=== PATIENT | female | born 1960 | race Caucasian/White ===

== ENCOUNTER 2018-08-15 14:59 | Inpatient (IN) ==
[2018-08-15 16:17] LABS: BASO# 0.09 X1000 (0.0-0.2); BASO% 1.6 % (0.0-0.8); EOS# 0.04 X1000 (0.0-0.7); EOS% 0.7 % (0.0-10.0); HEMATOCRIT 13.5 % (37.0-47.0); IMM GRAN# 0.01 X1000 (0.0-0.04); IMM GRAN% 0.2 % (0.0-0.5); LYMPH# 0.66 X1000 (1.2-3.4); LYMPH% 11.8 % (20.5-51.1); MCH 17.6 PG (27-31); MCHC 23.7 g/dL (33-37); MCV 74.2 FL (81-99); MONO# 0.53 X1000 (0.11-0.59); MONO% 9.5 % (1.7-9.3); MPV 10.7 FL (7.4-10.4); NEUT# 4.24 X1000 (1.4-6.5); NEUT% 76.2 % (42.2-75.2); PLT 570 X1000 (130-400); RBC 1.82 XMIL (4.2-5.4); RDW 18.7 % (11.5-14.5); WBC 5.57 X1000 (4.8-10.8)
[2018-08-15 16:19] LABS: HEMOGLOBIN 3.2 g/dL (12.0-16.0)
[2018-08-15] MEDS ORDERED: PROTONIX IV ONE (16:32)
[2018-08-15] MEDS ORDERED: SODIUM CHLORIDE 0.9% INJ ONE (16:32)
[2018-08-15 16:35] LABS: AGAP 17; ALBUMIN 3.8 g/dL (3.5-5.0); ALKALINE PHOSPHATASE 61 U/L (32-104); BUN 9 mg/dL (8-22); CALCIUM 8.7 mg/dL (8.8-10.2); CHLORIDE 101 mmol/L (98-107); COSMO 269; CREATININE 0.5 mg/dL (0.5-0.9); ESTIMATED GFR > 60; GLUCOSE 105 mg/dL (70-104); GOT 17 U/L (10-30); GPT 9 U/L (10-36); POTASSIUM 3.9 mmol/L (3.5-5.1); SODIUM 135 mmol/L (136-145); TCO2 18 mmol/L (25-35); TOTAL PROTEIN 6.8 g/dL (6.3-8.3)
[2018-08-15] MEDS ORDERED: NS 1,000 ML IV ONE ×2 (17:11→17:49)
[2018-08-15 17:22] LABS: OCCULT BLOOD 1 NEGATIVE (NEGATIVE)
--- NOTE | 2018-08-15 17:23 | PROVIDER DOCUMENTATION ---
This chart was entered by Sergio Sage Scribe, acting as scribe for Farnaz Lilyl MD. HPI-General Adult - General Chief Complaint: Numbness Stated Complaint: ANEMIC Time Seen by Provider: 08/15/18 16:03 Source: patient Allergies/Adverse Reactions: Patient Allergies Allergy/AdvReac Type Severity Reaction Status Date / Time tramadol [From Ultram] Allergy NAUSEA/VOMI Verified 08/15/18 15:15 TING - History of Present Illness -Gen Adult Nature of Presenting Problems: 57 yof presents to ed with cc of extremity numbness and tingling x 1 day. Reports rectal bleeding and generalized weakness. Reports hx of anemia. Review of Systems - Adult - REVIEW OF SYSTEMS - ADULT Constitutional: reports: fatique, other (general weakness). denies: chills, fever Eyes: reports: no symptoms reported Ears, Nose, Mouth & Throat: reports: no symptoms reported Cardiovascular: denies: chest pain, irregular heart rate, orthopnea, syncope Respiratory: denies: chronic cough, shortness of breath, wheezing Gastrointestinal: reports: rectal bleeding. denies: abdominal pain, diarrhea, difficulty swallowing, frequent heartburn, nausea, poor appetite, vomiting Genitourinary: denies: flank pain, frequent UTI's, hematuria, urinary retention , urgency Musculoskeletal: reports: no symptoms reported Integumentary: denies: mole changes, nail changes Neurological: reports: numbness, paresthesia. denies: dizziness/vertigo, headache/migraines, loss of balance, seizure, slurred speech, syncope, tremors Psychiatric: reports: no symptoms reported Endocrine: reports: no symptoms reported Hematologic/Lymphatic: reports: no symptoms reported Allergic/Immunologic: reports: no symptoms reported All Other Systems: Reviewed and Negative Past History - Adult - PAST MEDICAL HISTORY-ADULT Review of Records: reports: Nursing Assessment Review, Medications Reviewed Major Childhood Illnesses: reports: denies history Cardiovascular: reports: denies history Respiratory: reports: denies history Gastrointestinal: reports: denies history Obstetrical/Gynecological: reports: denies history Genitourinary: reports: denies history Musculoskeletal: reports: denies history Neurological: reports: denies history Endocrine/Immune: reports: anemia Other Conditions: reports: denies history - IMMUNIZATION STATUS Childhood Immunizations: See Nurse Assessment Flu Vaccine: See Nurse Assessment - FAMILY HISTORY Family History: reviewed, not pertinent - SOCIAL HISTORY Smoking: cigarettes, less than 1 pack/day Provider spent 3-5 mins advising pt. on dangers of tobacco.: Discussed manners to quit use, and f/u contacts for add'l counseling. Substance Use: none/never Physical Exam-General - PHYSICAL EXAM-ADULT Initial Vital Signs Reviewed: Yes - CONSTITUTIONAL General Appearance: alert, mild distress. negative: appears well - EYES Eyes: PERRL/EOMI, pale conjunctivae. negative: pink conjunctivae - HEAD, EARS, NOSE, MOUTH & THROAT HENMT: moist mucous membranes, normal ENT inspection, TMs normal, pharynx normal - NECK Neck: non-tender, full range of motion, supple, normal inspection - RESPIRATORY Respiratory: chest non-tender, lungs clear, normal breath sounds, no pleuratic chest pain, no respiratory distress, no accessory muscle use - CARDIOVASCULAR Cardiovascular: no edema, no gallop, no JVD, no murmur, tachycardia - GASTROINTESTINAL (ABDOMEN) Abdominal Exam: normal bowel sounds, non tender, soft, no organomegaly, no pulsatile mass - GENITOURINARY Rectal Exam: blood streaked stool Hemoccult Exam: heme positive stool - MUSCULOSKELETAL Back Exam: normal inspection, no CVA tenderness, no vertebral tenderness Extremity: normal range of motion, non-tender - SKIN Integumentary: normal turgor, warm/dry, pallor - NEUROLOGIC Neurologic: grossly normal - PSYCHIATRIC Psych/Mental Status: normal mood/affect, normal thought content, normal thought process, oriented x 3 Progress - PLAN OF CARE/RESULTS Progress/Plan/Lab Results: Vital Signs - 8 hr 08/15/18 15:09 08/15/18 16:09 Temperature 97.6 F Pulse Rate 103 H 101 H Respiratory Rate 16 17 Blood Pressure 124/61 129/67 O2 Sat by Pulse Oximetry 98 100 Laboratory Results - last 24 hr 08/15/18 16:00 WBC 5.57 RBC 1.82 L Hgb 3.2 L* Hct 13.5 L MCV 74.2 L MCH 17.6 L MCHC 23.7 L RDW Std Deviation 18.7 H Plt Count 570 H MPV 10.7 H Immature Gran % (Auto) 0.2 Neut % (Auto) 76.2 H Lymph % (Auto) 11.8 L Pender % (Auto) 9.5 H Eos % (Auto) 0.7 Baso % (Auto) 1.6 H Immature Gran # (Auto) 0.01 Neut # (Auto) 4.24 Lymph # (Auto) 0.66 L Pender # (Auto) 0.53 Eos # (Auto) 0.04 Baso # (Auto) 0.09 Orders Category Date Time Status CBC WITH ELECTRONIC DIFF [HEME] Stat Lab 08/15/18 16:00 Completed COMPREHENSIVE METABOLIC PANEL [CHEM] Stat Lab 08/15/18 16:00 Received Result Diagrams: 08/15/18 16:00 08/15/18 16:00 - CONSULTS/PCP/HOSPITALIST Notification #1 *Consult/PCP/Hospitalist*: dr. villanueva Time Discussed: 17:21 Consult Disposition: Admit (to [facility]) Departure - Departure Date of Disposition Decision: 08/15/18 Time of Disposition Decision: 17:22 DIAGNOSIS: Anemia, GI bleed Disposition: ADMITTED INPATIENT 09 Certified Medical Emergency: Emergent Condition: Stable Referrals and Follow-Ups: None,PCP [Primary Care Provider] - - Critical Care Note This patient required my direct & personal management of CC.: Yes Total Time (mins): 30 Critical Care Statement: This patient required my direct personal management to treat or rule out processes, the absence of which, could potentiallly result in sudden, clinically significant life or limb threatening deterioration. Attestation - Physician/ RAMON Attestation Patient care was provided by Advanced Practice Provider:: No The physician spent face to face time with patient:: Yes Advanced Practice Provider documentation review:: Supervising physician onsite and consulted in the evaluation and care of this patient. The physician did have a face to face encounter with the patient. This chart was documented by the indicated scribe, (Sergio Sage Scribe) and accurately reflects the services I performed and decisions made by me, Farnaz Lilly MD, as attested by the provider's signature.
[2018-08-15] MEDS ORDERED: TYLENOL PO ONE (18:54)
[2018-08-15] MEDS ORDERED: MORPHINE IV ONE ×2 (20:17→23:21)
[2018-08-15] MEDS ORDERED: ZOFRAN IV ONE (20:18)
[2018-08-16] MEDS: MORPHINE IV PRN ×6 (02:55→20:56)
[2018-08-16] MEDS: ZOFRAN IV PRN ×4 (02:56→20:56)
[2018-08-16] MEDS: SODIUM CHLORIDE 0.9% INJ SCH (02:56)
[2018-08-16] MEDS: PROTONIX IV SCH ×2 (02:56→14:23)
--- NOTE | 2018-08-16 03:41 | HISTORY AND PHYSICAL ---
ADDENDUM: The patient was seen in the ER and was noted to have a hemoglobin at 3.5. The patient notes that she has had similar episodes multiple times [place] and in [place]. She states that has never been able to be diagnosed with the cause of her bleeding. We will admit her to the hospital, type and cross, transfuse and we will follow. This does not appear to be an acute GI bleed but instead a chronic bleed. cc: Rick Lang MD MTDD
[2018-08-16 07:37] LABS: BASO# 0.05 X1000 (0.0-0.2); EOS# 0.06 X1000 (0.0-0.7); EOS% 1.2 % (0.0-10.0); HEMATOCRIT 31.1 % (37.0-47.0); HEMOGLOBIN 9.7 g/dL (12.0-16.0); IMM GRAN# 0.02 X1000 (0.0-0.04); IMM GRAN% 0.4 % (0.0-0.5); LYMPH# 0.43 X1000 (1.2-3.4); LYMPH% 8.6 % (20.5-51.1); MCH 25.4 PG (27-31); MCHC 31.2 g/dL (33-37); MCV 81.4 FL (81-99); MONO# 0.49 X1000 (0.11-0.59); MONO% 9.8 % (1.7-9.3); MPV 10.1 FL (7.4-10.4); NEUT# 3.97 X1000 (1.4-6.5); PLT 333 X1000 (130-400); RBC 3.82 XMIL (4.2-5.4); RDW 17.4 % (11.5-14.5); WBC 5.02 X1000 (4.8-10.8)
[2018-08-16 08:05] LABS: AGAP 10; BUN 9 mg/dL (8-22); CALCIUM 8.1 mg/dL (8.8-10.2); CHLORIDE 104 mmol/L (98-107); COSMO 268; CREATININE 0.6 mg/dL (0.5-0.9); ESTIMATED GFR > 60; GLUCOSE 88 mg/dL (70-104); MAGNESIUM 2.2 mg/dL (1.5-2.7); POTASSIUM 3.4 mmol/L (3.5-5.1); SODIUM 135 mmol/L (136-145); TCO2 21 mmol/L (25-35)
[2018-08-16] MEDS: NS 1,000 ML IV SCH ×2 (09:27→20:56)
[2018-08-16] MEDS: POTASSIUM CHLORIDE 20 MEQ/SWI 20 MEQ/100 ML IVPB IV SCH ×2 (09:27→11:13)
[2018-08-16 12:03] LABS: RETIC% 1.43 % (0.8-2.1); RETIC-HE 18.4 PG (28.2-36.6)
[2018-08-16 12:14] LABS: IRON SATURATION 62 %; TIBC 370 ug/dL; TOTAL IRON 229 ug/dL (49-151); UNBOUND IRON 141 ug/dL (112-346)
[2018-08-16 12:33] LABS: FERRITIN 12 ng/mL (13-150)
--- NOTE | 2018-08-16 14:13 | Diag Imaging Result Doc PS360 ---
EXAM: ABDOMEN FLAT/UPRIGHT 08/16/2018 HISTORY: abdominal pain TECHNIQUE: Flat and upright abdomen portable COMMENT: There is gas throughout the colon including the rectum. There is some small bowel loops in the left upper quadrant which are slightly distended with gas. The stomach is not distended and there is no evidence organomegaly or mass. IMPRESSION: The possibility of focal ileus in the left upper quadrant cannot be excluded. Otherwise nonspecific abdomen without evidence of obstruction. Electronically signed by Kj Longoria 08/16/2018 2:11 PM
[2018-08-16] MEDS: VENOFER 200 MG in NS 150 ML IV SCH (14:23)
--- NOTE | 2018-08-16 19:24 | PROGRESS NOTE ---
DATE: 08/16/2018 SUBJECTIVE: The patient complains of mild abdominal pain. She states that she has not had a bowel movement yet. OBJECTIVE: Vital Signs: Temperature 98.4 degrees, blood pressure 133/67, heart rate 84, respirations 20, O2 saturation is 100% on room air. General: This is a elderly female sitting up in bed in no acute distress. Heart: S1, S2 normal. Regular rate and rhythm. Lungs: Clear to auscultation bilaterally. Abdomen: Positive bowel sounds. Soft, nontender. Extremities: No edema, no cyanosis. Neuro: The patient is alert and oriented x3. LABS: White blood cell count 5, hemoglobin 9.7, hematocrit 31, platelets 333, 000, sodium 135, potassium 3.4, chloride 104, CO2 21, BUN 9, creatinine 0.6, glucose 88. ASSESSMENT AND PLAN: 1. Gastrointestinal bleed. Continue on IV Protonix and NPO status. Will await further recommendations from GI. 2. Severe symptomatic iron deficiency anemia. This is likely secondary to the patient's gastrointestinal bleed. We will start the patient on IV iron. The patient received 4 units of packed red blood cells overnight. Will continue to monitor the hemoglobin and hematocrit closely. 3. Hypokalemia. Will replace the patient's potassium. 4. Subclinical hypothyroidism. Aware. Will monitor this closely. 5. Tobacco dependence. The patient has been counseled about smoking cessation. 6. Deep vein thrombosis prophylaxis. Continue with SCDs. cc: Migdalia Whitney MD MTDD
[2018-08-17] MEDS: PROTONIX IV SCH ×2 (01:45→14:27)
[2018-08-17] MEDS: SODIUM CHLORIDE 0.9% INJ SCH (01:45)
[2018-08-17] MEDS: MORPHINE IV PRN ×6 (02:18→20:59)
[2018-08-17] MEDS: ZOFRAN IV PRN ×4 (02:21→20:59)
--- NOTE | 2018-08-17 05:08 | CONSULTATION ---
DATE OF CONSULTATION: 08/16/2018 REFERRING PHYSICIAN: Migdalia Whitney MD INDICATION FOR CONSULTATION: GI bleeding. HISTORY OF PRESENT ILLNESS: The patient is a 57-year-old white female who states that approximately 4 years ago, she presented with a bloody bowel movement and severe anemia. She was admitted to [facility] where she underwent an EGD and colonoscopy that was negative. She was followed by Dr. Kumar in [place], [place]. According to the patient, she had at least 3 EGDs and 3 colonoscopies over a period of 2 years, but no source of bleeding was found. She reports that the stools would be sometimes dark brown to black alternating with maroon stools. She required multiple units of blood as well as several iron transfusions. The patient states that her need for transfusions increase from every 2 to 3 months to every 3 weeks due to a hemoglobin that would drop less than 5. She was referred to [facility] in March 2017, where she underwent a capsule endoscopy for further evaluation, and it was also reportedly normal. She was referred back to [facility] when she had recurrent GI bleeding in April 2017, and also had a normal capsule endoscopy at that time. She was subsequently sent back to [facility] and underwent a double balloon enteroscopy in May 2017. According to the patient, there were a few AVMs that were visualized and cauterized. She states that less than a month later, she was admitted to [facility] with a hemoglobin less than 6. At that time, she underwent a capsule endoscopy. She states that the capsule endoscopy was negative. She was discharged to home but was readmitted a month later with severe anemia. At that time, she underwent an EGD, colonoscopy and capsule endoscopy but no source of bleeding was found. She required multiple units of blood, but states that she was told to not come back because they could not figure out where her bleeding was coming from. She states that because she of her experience [facility], she did not seek medical attention when she have recurrent GI bleeding. She states that in April of last year, she began to see intermittent dark stools as well as intermittent bright red blood. For the last 1 week, she has had daily bowel movements that were maroon in color and associated with profound weakness. She presented to [facility] on 08/15/2018, with weakness and fatigue. She was found to have a hemoglobin of 3.5 with hematocrit of 13.5. She was admitted and transfused 4 units of packed red blood cells. Her hemoglobin is now 9.7, with hematocrit of 31.1. We are asked to participate in her care. PAST MEDICAL HISTORY: 1. Recurrent anemia. 2. Obscure gastrointestinal bleeding with multiple EGDs, colonoscopies, double balloon enteroscopies, and capsule endoscopies performed. 3. Cervical cancer. 4. Traumatic back injury. 5. MRSA skin infection. 6. 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 PAST SURGICAL HISTORY: 1. Total abdominal hysterectomy. 2. . 3. Bilateral tubal ligation. 4. Back surgery x2. MEDICATION ALLERGIES: Tramadol which results in nausea with vomiting. HOME MEDICATIONS: None. SOCIAL HISTORY: The patient smoked 1 pack per day for 40 years. She reports social alcohol use. She denies recreational drug use. FAMILY HISTORY: Noncontributory. REVIEW OF SYSTEMS: Remarkable for periumbilical to mid epigastric abdominal pain. She reports mild nausea but denies other symptoms. PHYSICAL EXAM: Vital Signs: Her blood pressure is 123/71, pulse of 82, respirations 18, temperature of 97.5 degrees. She reports that her pain is 8 on a scale of 1 to 10. HEENT: Negative for jaundice. Her oropharyngeal mucosal membranes are dry. Pulmonary: Lungs are clear to auscultation with normal respiratory effort. Cardiovascular: Reveals a regular rate and rhythm with no murmurs, gallops, or rubs. Abdomen: Soft with minimal epigastric to periumbilical tenderness, but no rebound or guarding. Extremities: Bilaterally are negative for cyanosis, clubbing, or edema. OBJECTIVE DATA: Reveals a hemoglobin of 9.7 with hematocrit of 31.1, and a white count of 5.02. She has 333,000 platelets (this is post transfusion). On serum chemistries sodium is 135, potassium 3.4, chloride 104, CO2 21, BUN 9, creatinine 0.6, with a glucose of 88, and calcium of 8.2. Magnesium is 2.2. TSH 6.62 with a ferritin of 12. Her vitamin B12 is 412. Her folate is 11.7. IMPRESSION: 1. Obscure gastrointestinal bleeding. 2. Profound anemia. 3. Epigastric/periumbilical abdominal pain. 4. Weakness and fatigue. RECOMMENDATION: 1. I recommend that we obtain outside records. The patient has had an extensive evaluation and, therefore, we need her most recent evaluation to determine the best approach to identify the source of bleeding. 2. I agree with the transfusion that has been performed. 3. I agree with Protonix 40 mg IV q.12 hours for GI prophylaxis. 4. I will order a CT scan of the abdomen and pelvis to survey for the possibility of a malignancy given her recurrent symptoms. 5. She will likely require an EGD and colonoscopy on Wednesday. 6. Continue the iron infusions as you are currently doing pending the availability of the information from the outside facilities, notably [facility], [facility], and [facility]. 7. Additional recommendations to follow based on her clinical course. cc: MD Migdalia Quintana MD
[2018-08-17 07:47] LABS: BASO# 0.05 X1000 (0.0-0.2); BASO% 0.8 % (0.0-0.8); EOS# 0.13 X1000 (0.0-0.7); EOS% 2.1 % (0.0-10.0); HEMATOCRIT 29.6 % (37.0-47.0); IMM GRAN# 0.02 X1000 (0.0-0.04); IMM GRAN% 0.3 % (0.0-0.5); LYMPH% 6.6 % (20.5-51.1); MCH 25.1 PG (27-31); MCHC 30.4 g/dL (33-37); MCV 82.5 FL (81-99); MONO# 0.72 X1000 (0.11-0.59); MONO% 11.9 % (1.7-9.3); MPV 10.3 FL (7.4-10.4); NEUT# 4.75 X1000 (1.4-6.5); NEUT% 78.3 % (42.2-75.2); PLT 311 X1000 (130-400); RBC 3.59 XMIL (4.2-5.4); RDW 18.6 % (11.5-14.5); WBC 6.07 X1000 (4.8-10.8)
[2018-08-17 08:42] LABS: AGAP 11; BUN 3 mg/dL (8-22); CALCIUM 8.1 mg/dL (8.8-10.2); CHLORIDE 106 mmol/L (98-107); COSMO 274; CREATININE 0.5 mg/dL (0.5-0.9); ESTIMATED GFR > 60; GLUCOSE 89 mg/dL (70-104); POTASSIUM 3.6 mmol/L (3.5-5.1); SODIUM 139 mmol/L (136-145); TCO2 22 mmol/L (25-35)
[2018-08-17] MEDS: NS 1,000 ML IV SCH ×2 (09:42→21:13)
--- NOTE | 2018-08-17 11:01 | Diag Imaging Result Doc PS360 ---
EXAM: CT ABD/PELVIS W/PO AND IV CON 08/17/2018 HISTORY: abd pain, GI bleed TECHNIQUE: This exam was performed using automated exposure control, adjustment of mA or kV according to patient size, and/or use of iterative reconstruction technique. COMMENT: There are no previous studies available for comparison. There is bibasilar atelectasis particularly in the right lower lobe. There may be some interstitial pulmonary edema as well. There are bilateral pleural effusions. There is atherosclerotic calcification in the aorta and its branches. There is no evidence of aneurysm and the mesenteric and renal arteries are patent. There is no evidence of nephrolithiasis or hydronephrosis. No evidence of cholelithiasis is present. There are no renal masses. Some small cortical cysts are present on the left. The spleen is not enlarged. The left adrenal gland is enlarged measuring over 18 mm. There is pericholecystic fluid. There is a small amount of fluid in Morison's pouch and adjacent to the duodenum. The stomach is normal in appearance. There is no evidence of free air. No definite mucosal fold thickening is present in the proximal small bowel. There is a small amount of fluid in the right paracolic gutter. The portal vein is patent. There are no definite varices. The liver is unremarkable in appearance. There is no evidence of significant adenopathy. Pelvis: There is some diverticulosis in the ascending and sigmoid colon. The appendix is normal in appearance. There is free fluid in the cul-de-sac. There has been previous hysterectomy. The urinary bladder is not distended. There is no evidence of diverticulitis. There are degenerative changes in the lumbar spine and there has been fusion of the facets at the L4-5 and L5-S1 level bilaterally. There is no evidence of acute bony abnormality. IMPRESSION: Bilateral pleural effusions and basilar atelectasis. Ascites. Diverticulosis coli. Enlargement of the left adrenal gland. Electronically signed by Kj Longoria 08/17/2018 10:59 AM
[2018-08-17] MEDS: VENOFER 200 MG in NS 150 ML IV SCH (12:43)
--- NOTE | 2018-08-17 18:29 | Diag Imaging Result Doc PS360 ---
EXAM: CHEST-PORTABLE 08/17/2018 HISTORY: dyspnea TECHNIQUE: AP portable at 1817 COMMENT: There is blunting of the costophrenic angles. The heart size is at the upper limits of normal. There are no previous studies. There may be mild atelectasis in the lung bases. IMPRESSION: Bilateral pleural effusions and minimal basilar atelectasis. Electronically signed by Kj Longoria 08/17/2018 6:27 PM
[2018-08-17] MEDS ORDERED: LASIX IV ONE (19:19)
--- NOTE | 2018-08-17 23:57 | PROGRESS NOTE ---
DATE: 08/17/2018 SUBJECTIVE: The patient is sitting up, resting comfortably in bed. She complains of mild abdominal pain. She did have a bowel movement that was liquid and maroon in color. OBJECTIVE: Vital Signs: Temperature 97.9 degrees, blood pressure 111/60, heart rate 74, respirations 18, O2 saturation is 96% on room air. General: This is an elderly female sitting up in bed, in no acute distress. Heart: S1, S2 normal. Regular rate and rhythm. Lungs: Equal air entry bilaterally. Diminished breath sounds at the bases. Abdomen: Positive bowel sounds. Soft, nontender, nondistended. Extremities: No edema. No cyanosis. Neurologic: The patient is alert and oriented x3. LABORATORIES: White blood cell count 6, hemoglobin 9, hematocrit 29, platelets 311,000. Sodium 139, potassium 3.6, chloride 106, CO2 of 22, BUN 3, creatinine 0.5, glucose 89, calcium 8.1. IMAGING STUDIES: Chest x-ray shows bilateral pleural effusions and basilar atelectasis. ASSESSMENT AND PLAN: 1. Gastrointestinal bleed. We will continue with IV Protonix and IV iron. The patient is scheduled for endoscopy on Wednesday. 2. Iron deficiency anemia. Continue with IV iron infusions. 3. Bilateral pleural effusions. The patient received 4 units of packed red blood cells. We will give diuretic therapy today and monitor the patient's response. 4. Tobacco dependence. The patient has been counseled about smoking cessation. 5. Subclinical hypothyroidism. Aware. 6. Deep vein thrombosis prophylaxis. Continue with SCDs. cc: Migdalia Whitney MD
[2018-08-18] MEDS: MORPHINE IV PRN ×6 (00:34→23:45)
--- NOTE | 2018-08-18 01:07 | PROGRESS NOTE ---
DATE: 08/17/2018 SUBJECTIVE: The patient continues to have blood in her stool. She reports mild, diffuse abdominal discomfort. Her outside records arrived today from [facility] and from [facility]. The patient apparently has gastric, small bowel, and colonic AVMs that have bled in the past. She has had multiple EGDs and colonoscopies but no active bleeding during the procedure. All of her records that have been scanned into the computer were personally reviewed. PHYSICAL EXAMINATION: On exam, the patient's blood pressure is 127/70, pulse 85, respirations 20, temperature of 98.4 degrees. She reports an 8/10 abdominal pain on the pain scale. The remainder of her exam was deferred. OBJECTIVE DATA: Reveals a hemoglobin of 9.0 with a hematocrit of 29.6 and a white count of 6.07. She has 311,000 platelets. Sodium is 139, potassium 3.6, chloride 106, CO2 of 22, BUN 3, creatinine 0.5, with a glucose of 89 and a calcium of 8.1. RECOMMENDATION: 1. Given that the patient has known arteriovenous malformations, I have recommended EGD and colonoscopy on Wednesday morning. This will give us time to begin her bowel prep overnight. 2. Continue to monitor hemoglobin and hematocrit. It is noted that the hemoglobin is slowly trending downward. 3. We may need to consider the use of Premarin therapy as this has been shown to reduce bleeding from AVMs in small studies. This decision will be based on her endoscopic findings. 4. Continue her current therapy at this time. 5. Continue iron infusions. 6. Notably, her CT scan is remarkable for bilateral pleural effusions, bilateral atelectasis, ascites, diverticulosis, and enlarged left adrenal gland. Her liver is normal. Therefore, based on this, I will plan to pursue endoscopy for evaluation of the GI bleeding, a high-fiber diet post procedure given the diverticulosis, and I will discuss the amount of fluid in the abdomen with the radiologist to determine if it is amenable to paracentesis. 7. Additional recommendations to follow based on her endoscopic evaluation. cc: MD Migdalia Quintana MD
[2018-08-18] MEDS: PROTONIX IV SCH ×2 (01:53→14:22)
[2018-08-18] MEDS: ZOFRAN IV PRN ×3 (05:18→20:19)
[2018-08-18 07:39] LABS: BASO# 0.06 X1000 (0.0-0.2); BASO% 1.1 % (0.0-0.8); EOS# 0.17 X1000 (0.0-0.7); HEMATOCRIT 32.3 % (37.0-47.0); HEMOGLOBIN 9.6 g/dL (12.0-16.0); LYMPH% 7.1 % (20.5-51.1); MCH 25.1 PG (27-31); MCHC 29.7 g/dL (33-37); MCV 84.6 FL (81-99); MONO# 0.79 X1000 (0.11-0.59); MPV 10.1 FL (7.4-10.4); NEUT# 4.22 X1000 (1.4-6.5); NEUT% 74.8 % (42.2-75.2); PLT 323 X1000 (130-400); RBC 3.82 XMIL (4.2-5.4); RDW 20.1 % (11.5-14.5); WBC 5.64 X1000 (4.8-10.8)
[2018-08-18 07:49] LABS: AGAP 12; ALB/GLOB RATIO 1.4; ALBUMIN 3.4 g/dL (3.5-5.0); ALKALINE PHOSPHATASE 59 U/L (32-104); BUN 3 mg/dL (8-22); CALCIUM 8.6 mg/dL (8.8-10.2); CHLORIDE 99 mmol/L (98-107); COSMO 274; CREATININE 0.6 mg/dL (0.5-0.9); ESTIMATED GFR > 60; GLUCOSE 127 mg/dL (70-104); GOT 14 U/L (10-30); GPT 8 U/L (10-36); MAGNESIUM 1.9 mg/dL (1.5-2.7); PHOSPHORUS 3.6 mg/dL (2.7-4.5); POTASSIUM 3.2 mmol/L (3.5-5.1); SODIUM 138 mmol/L (136-145); TCO2 27 mmol/L (25-35); TOTAL BILIRUBIN 0.52 mg/dL (0.20-1.00); TOTAL PROTEIN 5.8 g/dL (6.3-8.3)
[2018-08-18] MEDS ORDERED: KLOR-CON PO ONE (09:51)
--- NOTE | 2018-08-18 10:50 | Diag Imaging Result Doc PS360 ---
EXAM: CHEST-PORTABLE 08/18/2018 HISTORY: pleural effusion TECHNIQUE: AP portable at 1021 COMMENT: There is blunting of the costophrenic angles particularly the right. This was also present on 08/17/2018. There is some slight to subsegmental atelectasis in the right base. The heart size and primary vascularity are within normal limits. IMPRESSION: Small pleural effusions and right basilar atelectasis. Electronically signed by Kj Longoria 08/18/2018 10:48 AM
--- NOTE | 2018-08-18 10:51 | Diag Imaging Result Doc PS360 ---
EXAM: NECK AP AND/OR LAT SOFT TISSUE 08/18/2018 HISTORY: swelling in neck TECHNIQUE: AP and lateral soft tissue neck COMMENT: There is extensive calcification in both carotid arteries. There is no evidence of prevertebral soft tissue swelling. The epiglottis is not enlarged. The airway appears to be clear. There are no apparent masses. There is degenerative disc disease at C5-6 and C6-7 levels with minimal posterior osteophyte formation. IMPRESSION: No definite evidence of acute disease. Electronically signed by Kj Longoria 08/18/2018 10:49 AM
[2018-08-18] MEDS: VENOFER 200 MG in NS 150 ML IV SCH (12:39)
[2018-08-18] MEDS ORDERED: LASIX IV ONE (12:44)
--- NOTE | 2018-08-18 13:49 | PROGRESS NOTE ---
DATE: 08/18/2018 SUBJECTIVE: The patient is sitting up in bed. She complains of some pain and swelling on the left side of her neck where she had an IV. OBJECTIVE: Vital Signs: Temperature 98.4 degrees, blood pressure 103/53, heart rate 70, respirations 18, O2 saturation 98% on room air. General: This is an elderly female, sitting up in bed, in no acute distress. Heart: S1, S2 normal. Regular rate and rhythm. Lungs: Diminished breath sounds at the bases. Equal air entry bilaterally. No crackles. No rales. Abdomen: Positive bowel sounds. Soft, nontender, nondistended. Extremities: No edema. No cyanosis. Neurologic: The patient is alert and oriented x3. LABS: Hemoglobin 9.6, hematocrit 32, platelets 323,000. Potassium 3.2, sodium 138, BUN 3, creatinine 0.6, glucose 127, magnesium 1.9, phosphorus 3.6. AST 14, ALT 8, alkaline phosphatase 59. ASSESSMENT AND PLAN: 1. Gastrointestinal bleed. The patient is scheduled to undergo endoscopy tomorrow. Will await the results of this diagnostic study. 2. Iron deficiency anemia. Continue with iron supplementation. The hemoglobin and hematocrit have improved. 3. Bilateral pleural effusions. Improved. We will give another dose of Lasix today. 4. Subclinical hypothyroidism. Aware. 5. Tobacco dependence. The patient has been counseled about smoking cessation. 6. Deep vein thrombosis prophylaxis. Continue with SCDs. cc: Migdalia Whitney MD MTDD
[2018-08-18] MEDS ORDERED: GOLYTELY PO ONE (14:00)
--- NOTE | 2018-08-19 00:35 | PROGRESS NOTE ---
DATE: 08/18/2018 SUBJECTIVE: The patient states that she has successfully completed her bowel prep today. She reports that her stools are brown. However, they remain guaiac positive. She denies evidence of active bleeding at this time. She is anxious to undergo re-evaluation given that her hemoglobin was 3.2 on admission. PHYSICAL EXAMINATION: Vital Signs: Her blood pressure is 120/62, pulse 71, respiration 18, temperature of 98.1 degrees. The remainder of her exam was deferred. OBJECTIVE DATA: Hemoglobin of 9.6 with hematocrit of 32.3 and a white count of 5.64. She has 323,000 platelets. Sodium is 138, potassium 3.2, chloride 99, CO2 27, BUN 3, creatinine 0.6 with a glucose 127. Calcium is 8.6, phosphorus 3.6, magnesium 1.9, total bilirubin 0.52, AST 14, ALT 8, alkaline phosphatase 59, total protein 5.8 and albumin 3.4. RECOMMENDATION: 1. The patient awaits EGD and colonoscopy in the morning. 2. I advised the patient that given that she has had extensive evaluation in the past and has an obscure GI bleeding, the exam tomorrow may or may not find the cause of bleeding. However, we will evaluate for lesions that are amenable to treatment. 3. If the endoscopy is negative tomorrow, one can consider empiric Premarin therapy which has been used successfully for obscure bleeding secondary to arteriovenous malformations. There is a small but significant increased risk of blood clot. This will need to be discussed in detail based on our endoscopic findings. 4. Additional recommendations to follow based on her endoscopy tomorrow. cc: MD Migdalia Quintana MD
[2018-08-19] MEDS: PROTONIX IV SCH ×3 (02:16→21:29)
[2018-08-19] MEDS: ZOFRAN IV PRN ×2 (02:16→09:06)
[2018-08-19] MEDS: MORPHINE IV PRN ×5 (04:11→21:30)
[2018-08-19 07:05] LABS: HEMATOCRIT 33.2 % (37.0-47.0); HEMOGLOBIN 9.9 g/dL (12.0-16.0); MCH 25.9 PG (27-31); MCHC 29.8 g/dL (33-37); MCV 86.9 FL (81-99); MPV 10.2 FL (7.4-10.4); RBC 3.82 XMIL (4.2-5.4); RDW 22.3 % (11.5-14.5); WBC 5.69 X1000 (4.8-10.8)
[2018-08-19 07:24] LABS: AGAP 11; BUN 3 mg/dL (8-22); CALCIUM 8.5 mg/dL (8.8-10.2); CHLORIDE 101 mmol/L (98-107); COSMO 272; CREATININE 0.6 mg/dL (0.5-0.9); ESTIMATED GFR > 60; GLUCOSE 95 mg/dL (70-104); POTASSIUM 3.6 mmol/L (3.5-5.1); SODIUM 138 mmol/L (136-145); TCO2 26 mmol/L (25-35)
[2018-08-19] MEDS ORDERED: MUCOMYST 20% INH SCH (10:30)
[2018-08-19] MEDS ORDERED: KEFZOL 1 GM/D5W 1 GM/50 ML IVPB IV SCH (10:30)
--- NOTE | 2018-08-19 11:31 | PROGRESS NOTE ---
DATE: 08/19/2018 SUBJECTIVE: The patient is resting comfortably in bed. No acute events noted overnight. The patient is scheduled for endoscopy today. OBJECTIVE: Vital Signs: Temperature 98 degrees, blood pressure 116/64, heart rate 66, respirations 16. O2 saturation is 95% on room air. General: The patient is sitting up in bed in no acute distress. Head: Normocephalic. Neck: The patient has some mild erythema and tenderness on the left lateral aspect of her neck. Neck: The area appears to be erythematous. Heart: S1, S2 normal. Regular rate and rhythm. Lungs: Clear to auscultation bilaterally. Abdomen: Positive bowel sounds. Soft, nontender, nondistended. Extremities: No edema, no cyanosis. Neurologic: The patient is alert and oriented x3. LABS: White blood cell count 5.6, hemoglobin 9.9, hematocrit 33, platelets 290, 000. Sodium 138, potassium 3.6, chloride 101, CO2 26, BUN 3, creatinine 0.6, glucose 95, calcium 8.5. ASSESSMENT AND PLAN: 1. Gastrointestinal bleed. The patient is scheduled to undergo esophagogastroduodenoscopy with colonoscopy today. Will await the results of this diagnostic study. 2. Iron deficiency anemia. Improved. We will start the patient on Icar C. The patient received 3 days of intravenous iron infusions. 3. Bilateral pleural effusions, slowly improving. 4. Tobacco dependence. The patient has been counseled about smoking cessation. 5. Subclinical hypothyroidism. Aware. 6. Deep vein thrombosis prophylaxis. The patient is on sequential compression devices. cc: Migdalia Whitney MD MTDD
[2018-08-19] MEDS: DUONEB (A & A) INH SCH ×3 (11:44→23:49)
--- NOTE | 2018-08-19 11:45 | Diag Imaging Result Doc PS360 ---
CT CERVICAL SPINE W/O CONTRAST - 08/19/2018 INDICATION: cervical radiculopathy COMPARISON: None FINDINGS: There is mild reversal of the normal cervical lordosis. No fracture or subluxation. Vertebral body heights are preserved. There is advanced disc degeneration mainly at C5-6 and C6-7, with narrowing, sclerosis, and anterior and posterior osteophytes. There is also mild multilevel facet degeneration without significant hypertrophy. There is severe vascular calcification of the carotid bulbs bilaterally compatible with severe vascular disease. At C4-5 there is a mild disc bulge but no significant stenosis. At C5-6 there is a significant posterior disc bulge with [id number] central canal stenosis. There is also moderate bilateral neural foraminal stenosis. At C6-7 there is a diffuse posterior disc bulge with mild central canal stenosis. There is moderate left neural foraminal stenosis. IMPRESSION: Chronic malpositioning of the cervical spine. Cervical spondylosis. This exam was performed using automated exposure control, adjustment of mA or kV according to patient size, and/or use of iterative reconstruction technique. Electronically signed by Gabriel Johnston 08/19/2018 11:43 AM
--- NOTE | 2018-08-19 11:51 | Diag Imaging Result Doc PS360 ---
EXAM: CHEST-PORTABLE HISTORY: dyspnea TECHNIQUE: Portable chest COMPARISON: 08/18/2018 FINDINGS: The lungs are well expanded. The heart is not enlarged. The vessels are not distended. There are no infiltrates. No definite effusions identified on the current exam. IMPRESSION: Interval improvement Electronically signed by Enrique Jackson 08/19/2018 11:48 AM
--- NOTE | 2018-08-19 12:09 | Diag Imaging Result Doc PS360 ---
EXAM: US SOFT TISSUE HEAD/NECK HISTORY: left neck abscess TECHNIQUE: Left neck ultrasound COMPARISON: None. FINDINGS: There are small lymph nodes in the lower neck measuring less than 1 cm. No cyst or cystic mass. No other solid mass. IMPRESSION: No abscess identified. Electronically signed by Enrique Jackson 08/19/2018 12:06 PM
[2018-08-19] MEDS ORDERED: TESSALON PO SCH (13:00)
[2018-08-19] MEDS ORDERED: DIPRIVAN 1% ONE ×2 (15:14→15:34)
[2018-08-19 15:43] LABS: PH BODY FLUID 5; SPECIMEN GASTRIC FLUID
--- NOTE | 2018-08-19 17:13 | Diag Imaging Result Doc PS360 ---
BARIUM ENEMA - 08/19/2018 INDICATION: obstruction at 60 cm on colonoscopy TECHNIQUE: Water-soluble contrast enema. Total fluoroscopy time was two minutes. 25 images were obtained. COMPARISON: 08/16/2018 FINDINGS: The colon is normally distensible. Configuration appears normal. There are several diverticula of the sigmoid colon. The sigmoid colon is also rather redundant. No obstruction or perforation. IMPRESSION: Mild diverticulosis of the sigmoid colon. Redundant sigmoid colon. No acute abnormality. Electronically signed by Gabriel Johnston 08/19/2018 5:10 PM
[2018-08-19] MEDS: CARAFATE LIQUID PO SCH (17:53)
[2018-08-19] MEDS: ATIVAN IV PRN ×2 (17:53→21:30)
--- NOTE | 2018-08-19 20:03 | OPERATIVE NOTE ---
PROCEDURE DATE: 08/19/2018 REFERRING PROVIDER: Migdalia Whitney MD INDICATION FOR PROCEDURE: 1. Anemia. 2. Melena. 3. Hematochezia. PROCEDURE PERFORMED: Esophagogastroduodenoscopy with biopsy. CONSENT: Informed consent was obtained from the patient prior to the procedure. The risks, benefits, and alternatives were discussed. MEDICATION: The patient received monitored anesthesia care. PERFORMING PHYSICIAN: Pippa Bhat MD. ASSISTANTS: 1. [facility] 2. Kamini Hollis R.N. 3. Solange Tinoco CRNA. 4. Madhu Nguyen MD (Anesthesia). COMPLICATIONS: There were no complications. ESTIMATED BLOOD LOSS: Less than 1 mL. SPECIMENS REMOVED: 1. Duodenal biopsy. 2. Gastric biopsy. 3. Gastric aspirate for pH. FINDINGS: After sedation was achieved, the upper endoscope was inserted to the third portion of the duodenum. The hypopharynx appeared normal. The tubular esophagus was normal. There was active bile reflux to the mid esophagus during the procedure. The GE junction appeared normal at 40 cm. In the gastric lumen, there was acute erosive gastritis. In the antrum, there were 5 serpiginous ulcers with whitish bases. The ulcers were inflamed but there was no stigmata of bleeding. On retroflexed view, there was an additional serpiginous ulcer in the cardia that extended to the fundus. There was no stigmata of bleeding. On forward view, the pylorus appeared normal. In the duodenum, there was extensive erosive duodenitis. The duodenal folds were scalloped, but there was no active bleeding. There were at least 2 duodenal diverticulum that were visualized. The ampulla of Vater appeared grossly normal. After the exam was complete, biopsies were taken from the duodenal and gastric mucosa. In addition, gastric fluid was aspirated for gastric pH. The lumen was then decompressed and the scope was removed without incident. IMPRESSION: 1. Bile active bile reflux. 2. Acute erosive gastritis. 3. Five gastric ulcers in the antrum. 4. One gastric ulcer in the cardia/fundus. 5. Acute erosive duodenitis with scalloped duodenal folds. 6. Duodenal diverticulum. RECOMMENDATION: 1. Await biopsy results. 2. Continue Protonix 40 mg q.12 h. 3. Add Carafate 1 g p.o. 4 times a day for 12 weeks and then stop. 4. We will obtain a serum gastrin level to assess for Gopi-Villa syndrome. 5. We await the results of the gastric pH study. 6. We will proceed with a colonoscopy as previously scheduled. cc: MD Migdalia Quintana MD
[2018-08-20] MEDS: TESSALON PO PRN ×3 (00:19→21:53)
[2018-08-20] MEDS: CARAFATE LIQUID PO SCH ×4 (00:20→17:23)
--- NOTE | 2018-08-20 03:10 | OPERATIVE NOTE ---
PROCEDURE DATE: 08/19/2018 REFERRING PHYSICIAN: Migdalia Whitney MD. INDICATION FOR THE PROCEDURE: 1. Anemia. 2. Melena. 3. Hematochezia. PROCEDURE PERFORMED: Colonoscopy limited to 60 cm with biopsy. CONSENT: Informed consent was obtained from the patient prior to the procedure. The risks, benefits, and alternatives were discussed. MEDICATION: The patient received monitored anesthesia care. PERFORMING PHYSICIAN: Pippa Bhat MD. ASSISTANTS: 1. [facility]. 2. Kamini Hollis RN. 3. Solange Tinoco CRNA. 4. Madhu Nguyen MD (anesthesia). COMPLICATIONS: There were no complications. ESTIMATED BLOOD LOSS: Less than 1 mL. SPECIMEN REMOVED: Polyp at 20 cm x2. FINDINGS: After sedation was achieved, the pediatric colonoscope was inserted to 60 cm. At 60 cm, there was severe twisting and angulation consistent with a redundant colon. We were unable to advance the scope beyond 60 cm. Upon withdrawal, there was diverticulosis in the descending and sigmoid colon. At 20 cm, there were 2 polyps that ranged in size from 3-5 mm. They were removed by cold biopsy forceps. In the upper rectum, there was grade 2 internal hemorrhoids. On retroflexed view, there were large external hemorrhoids. After the exam was complete, the lumen was decompressed and the scope was removed without incident. IMPRESSION: 1. Sharp angulation versus redundant colon. 2. Sigmoid and descending colon diverticulosis. 3. Sessile polyps at 20 cm. 4. Grade 2 internal hemorrhoids. 5. Large external hemorrhoids. RECOMMENDATION: 1. Await biopsy results. 2. We will obtain a barium enema now. 3. She will need a repeat colonoscopy to survey for additional colon polyps in the future. I recommend using the standard adult colonoscope. This exam can be performed as an outpatient. 4. I will advance the patient's diet. If she tolerates her diet overnight and in the morning, it is reasonable to pursue outpatient management. 5. Please have the patient call our office and schedule a follow up appointment for 09/07/2018. cc: MD Migdalia Quintana MD
[2018-08-20] MEDS: DUONEB (A & A) INH SCH ×6 (03:15→23:37)
[2018-08-20] MEDS: MORPHINE IV PRN ×5 (03:51→21:53)
[2018-08-20] MEDS: ATIVAN IV PRN ×5 (03:52→21:53)
[2018-08-20 07:41] LABS: BASO# 0.03 X1000 (0.0-0.2); BASO% 0.4 % (0.0-0.8); EOS# 0.07 X1000 (0.0-0.7); EOS% 0.9 % (0.0-10.0); HEMATOCRIT 35.1 % (37.0-47.0); HEMOGLOBIN 10.3 g/dL (12.0-16.0); LYMPH% 3.7 % (20.5-51.1); MCH 25.8 PG (27-31); MCHC 29.3 g/dL (33-37); MONO# 0.75 X1000 (0.11-0.59); MONO% 9.2 % (1.7-9.3); NEUT# 7.01 X1000 (1.4-6.5); NEUT% 85.8 % (42.2-75.2); PLT 303 X1000 (130-400); RBC 3.99 XMIL (4.2-5.4); RDW 22.8 % (11.5-14.5); WBC 8.16 X1000 (4.8-10.8)
[2018-08-20 07:53] LABS: CHOLESTEROL 87 mg/dL (0-200); HDL 35 mg/dL (45-65); LDL 42 mg/dL; TRIGLYCERIDES 50 mg/dL (35-135); VLDL 10 mg/dL
[2018-08-20 07:54] LABS: AGAP 11; BUN 6 mg/dL (8-22); CALCIUM 8.8 mg/dL (8.8-10.2); CHLORIDE 101 mmol/L (98-107); COSMO 277; CREATININE 0.6 mg/dL (0.5-0.9); ESTIMATED GFR > 60; GLUCOSE 133 mg/dL (70-104); POTASSIUM 3.7 mmol/L (3.5-5.1); SODIUM 139 mmol/L (136-145); TCO2 27 mmol/L (25-35)
[2018-08-20 08:40] LABS: BANDS 1 % (0-1); EOS 1 % (1-10); LYMPHS 4 % (21-51); MONO 8 % (1-9); SEGS 86 % (42-75)
[2018-08-20 08:41] LABS: ANISOCYTOSIS OCCASIONAL; HYPOCHROM OCCASIONAL
[2018-08-20] MEDS: PROTONIX IV SCH ×2 (09:15→20:41)
[2018-08-20] MEDS: ZOFRAN IV PRN ×3 (10:09→21:58)
[2018-08-20] MEDS: TUSSIONEX LIQUID PO PRN ×2 (10:37→21:53)
--- NOTE | 2018-08-20 13:16 | PROGRESS NOTE ---
DATE: 08/20/2018 SUBJECTIVE: The patient states that she did not sleep well last night. OBJECTIVE: Vital Signs: Temperature 97 degrees, blood pressure 112/67, heart rate 86, respirations 16, O2 saturation is 98% on room air. General: This is an elderly female lying in the bed in no acute distress. Heart: S1, S2 normal. Regular rate and rhythm. Lungs: Clear to auscultation bilaterally. Diminished breath sounds at the bases. Abdomen: Positive bowel sounds. Soft, nontender, nondistended. Extremities: No edema, no cyanosis. Neuro: The patient is alert and oriented x3. LABS: Hemoglobin 10, hematocrit 35, platelets 303,000, sodium 139, BUN 6, creatinine 0.6, glucose 133, magnesium 2. ASSESSMENT AND PLAN: 1. Gastrointestinal bleed secondary to multiple gastric ulcers. Continue on Carafate and Protonix. 2. Erosive duodenitis. The patient is on Protonix. 3. Iron deficiency anemia. Improved. Will continue on iron supplementation. 4. Bilateral pleural effusions. Stable. 5. Subclinical hypothyroidism. Aware. 6. Tobacco dependence. The patient has been counseled about smoking cessation. 7. Severe vascular calcification of the carotid bulb. This was seen on the CT of the cervical spine. Will order a carotid duplex study as well as an echocardiogram. 8. Deep vein thrombosis prophylaxis continue SCDs. cc: Migdalia Whitney MD MTDD
--- NOTE | 2018-08-20 16:16 | Diag Imaging Result Doc PS360 ---
CT THORAX W/O CONTRAST - 08/20/2018 INDICATION: dyspnea/cough/smoker COMPARISON: Chest x-ray from 08/19/2018 FINDINGS: There is no adenopathy. Anemia is present. Heart size is normal with no pericardial effusion. There is a trace right pleural effusion. There is some minimal linear atelectasis in both lung bases. No infiltrates or masses. Upper abdominal images are normal. There are moderate degenerative changes of the spine. No acute or suspicious bony lesion. IMPRESSION: Trace right pleural effusion. Nonspecific linear atelectasis in both lung bases. No suspicious findings. This exam was performed using automated exposure control, adjustment of mA or kV according to patient size, and/or use of iterative reconstruction technique Electronically signed by Gabriel Johnston 08/20/2018 4:14 PM
--- NOTE | 2018-08-20 17:54 | ECHO REPORT ---
ORDER DATE: 08/20/2018 ECHOCARDIOGRAPHIC MEASUREMENTS: 1. Interventricular septum 1.3, left ventricular posterior wall 1.3, diastolic diameter 4.5, left atrium 4.8, aorta 3.2. 2. Aortic valve leaflets are sclerosed, trileaflet opening normally. Pulmonic valve was normal. There is trace pulmonary regurgitation. 3. Tricuspid valve was normal. 4. Mitral valve was normal. There is mild mitral regurgitation. 5. Mild tricuspid regurgitation. Peak velocity across the tricuspid valve was 2.4 m/sec. 6. Peak velocity across the aortic valve less than 2 m/sec. There is no aortic stenosis or regurgitation. 7. Normal left ventricular cavity size. Mild left ventricular hypertrophy. Estimated ejection fraction of 60%. 8. There is no pericardial effusion or obvious intracardiac mass or thrombus seen. 9. There is left atrial enlargement. cc: MD Migdalia Zhou MD
[2018-08-21] MEDS: CARAFATE LIQUID PO SCH ×5 (00:29→23:15)
[2018-08-21] MEDS: DUONEB (A & A) INH SCH ×6 (03:29→22:50)
[2018-08-21] MEDS: ATIVAN IV PRN ×4 (05:23→23:15)
[2018-08-21] MEDS: MORPHINE IV PRN ×4 (05:23→23:14)
[2018-08-21] MEDS: ZOFRAN IV PRN ×3 (05:28→16:31)
[2018-08-21 08:01] LABS: AGAP 17; BUN 7 mg/dL (8-22); CALCIUM 8.3 mg/dL (8.8-10.2); CHLORIDE 99 mmol/L (98-107); COSMO 270; CREATININE 0.5 mg/dL (0.5-0.9); ESTIMATED GFR > 60; GLUCOSE 95 mg/dL (70-104); POTASSIUM 3.7 mmol/L (3.5-5.1); SODIUM 136 mmol/L (136-145); TCO2 20 mmol/L (25-35)
[2018-08-21] MEDS: SODIUM CHLORIDE 0.9% INJ SCH (09:40)
[2018-08-21] MEDS: PROTONIX IV SCH ×2 (09:40→20:47)
[2018-08-21] MEDS: TUSSIONEX LIQUID PO PRN ×2 (09:48→20:47)
[2018-08-21] MEDS: ZOSYN 2.25 GM in NS 50 ML IV SCH ×3 (11:46→23:15)
--- NOTE | 2018-08-21 18:43 | PROGRESS NOTE ---
DATE: 08/21/2018 SUBJECTIVE: The patient is resting comfortably in bed. She complains of numbness in her left arm when she turns her head. OBJECTIVE: Vital Signs: Temperature 98.6, blood pressure 117/64, heart rate 94, respirations 18, O2 sats 97% on room air. General: This is an elderly female lying in bed in no acute distress. Heart: S1, S2 normal. Regular rate and rhythm. Lungs: Clear to auscultation bilaterally. Abdomen: Positive bowel sounds. Soft, nontender, nondistended. Extremities: No edema, no cyanosis. Neurologic: The patient is alert and oriented x 3. LABS: Reviewed. ASSESSMENT AND PLAN: 1. GI bleed secondary to multiple gastric ulcers. Continue on Carafate and Protonix. 2. Erosive duodenitis. The patient is on Protonix. 3. Iron deficiency anemia. Continue on iron supplementation. 4. Bilateral pleural effusions. Resolved. 5. Possible cervical radiculopathy. Will order an MRI of the C-spine to be done tomorrow. 6. Subclinical hypothyroidism. Aware. 7. Tobacco dependence. The patient has been counseled about smoking cessation. 8. Severe vascular calcification of the carotid bulb. Will order a carotid Doppler study to further assess this. 9. DVT prophylaxis. Continue with SCDs. cc: Migdalia Whitney MD
[2018-08-22] MEDS: DUONEB (A & A) INH SCH ×6 (03:20→23:17)
[2018-08-22] MEDS: MORPHINE IV PRN ×2 (05:16→09:59)
[2018-08-22] MEDS: ZOSYN 2.25 GM in NS 50 ML IV SCH ×4 (05:16→22:22)
[2018-08-22] MEDS: CARAFATE LIQUID PO SCH ×3 (05:16→18:12)
[2018-08-22] MEDS: ZOFRAN IV PRN ×5 (05:44→22:34)
[2018-08-22 07:05] LABS: HEMOGLOBIN 9.2 g/dL (12.0-16.0); MCH 25.6 PG (27-31); MCHC 28.8 g/dL (33-37); MCV 88.9 FL (81-99); MPV 10.2 FL (7.4-10.4); RBC 3.6 XMIL (4.2-5.4); RDW 23.9 % (11.5-14.5); WBC 8.93 X1000 (4.8-10.8)
[2018-08-22 07:23] LABS: AGAP 13; BUN 8 mg/dL (8-22); CALCIUM 8.4 mg/dL (8.8-10.2); CHLORIDE 99 mmol/L (98-107); COSMO 270; CREATININE 0.5 mg/dL (0.5-0.9); ESTIMATED GFR > 60; GLUCOSE 100 mg/dL (70-104); POTASSIUM 3.3 mmol/L (3.5-5.1); SODIUM 136 mmol/L (136-145); TCO2 24 mmol/L (25-35)
[2018-08-22] MEDS ORDERED: KLOR-CON PO ONE (08:24)
[2018-08-22] MEDS: PROTONIX IV SCH ×2 (10:00→22:22)
--- NOTE | 2018-08-22 10:00 | Diag Imaging Result Doc PS360 ---
EXAM: MRI CERVICAL SPINE W/O CON INDICATION: cervical radiculopathy TECHNIQUE: COMPARISON: No prior MRI C-spine is available for comparison. FINDINGS: There are mild endplate degenerative Modic signal changes at C6-7. The osseous marrow signal is essentially unremarkable, otherwise. The cervical spinal cord signal is unremarkable. Structures at the base the brain and surrounding soft tissues are grossly unremarkable. Segmental analysis of the cervical spine is detailed below. C1-2: Essentially unremarkable. C2-3: Essentially unremarkable. C3-4: Essentially unremarkable. C4-5: There is a very small broad-based disc osteophyte complex causing minimal effacement of the ventral thecal sac. There is no evidence of cord compression and no evidence of significant foraminal stenosis. C5-6: There is a broad-based disc osteophyte complex that is causing moderate central stenosis. No definite cord compression is appreciated. There is at least moderate left neuroforaminal stenosis and mild right neuroforaminal stenosis. C6-7: There is a broad-based disc osteophyte complex causing [id number] central canal stenosis. There is moderate to severe left neuroforaminal stenosis and mild to moderate right neuroforaminal stenosis. C7-T1: Unremarkable. IMPRESSION: Multilevel degenerative disc disease as detailed above that appears to be most significant at C5-6 and C6-7. Electronically signed by Sage Rowe 08/22/2018 9:58 AM
[2018-08-22] MEDS: ATIVAN IV PRN ×3 (10:48→22:22)
--- NOTE | 2018-08-22 13:23 | CONSULTATION ---
DATE OF CONSULTATION: 08/22/2018 REASON FOR CONSULTATION: Left arm tingling. HISTORY OF PRESENT ILLNESS: This is a 57-year-old right-handed female with chronic anemia that is being worked up. She was admitted with a hemoglobin of 3.2 and hematocrit of 13.5. She has recently undergone EGD and colonoscopy. Several gastric ulcers, erosive gastritis and duodenitis and polyps were seen. Biopsies are pending. She received blood transfusion as well as iron this hospitalization. The patient reports for nearly 3 weeks she has had mostly persistent tingling sensation in her left upper extremity. At rare times, the sensation does derrick, but typically it is present and waxes and wanes in intensity. The location is over the anterior arm and forearm both medially and laterally, and then she feels numbness and tingling in the tips of all digits of the left hand, palmar and dorsal. It does not otherwise involve the hand. The symptoms are improved when she turns her head to the right. She does not know what makes the symptoms flare. She noticed once that she had some difficulty holding a cup with her left hand. She may have dropped it, but she does not recall exactly. She reports neck pain since June. She denies injury. She denies any other weakness. The symptoms are limited to the left upper extremity as described. No other neurologic symptoms. Cervical MRI here, noncontrasted, showed multilevel degenerative disk disease most significant at C5-C6 and C6-C7. At C5-C6 there is moderate central stenosis, no definite cord compression, and at least moderate neuroforaminal stenosis and mild right neuroforaminal stenosis. At C6-C7, there is mild to moderate central canal stenosis, moderate to severe left neuroforaminal and mild to moderate right neuroforaminal stenosis. She has never had any history of major neurologic events. PAST MEDICAL HISTORY: 1. She reports chronic anemia without prior explanation. 2. Two back surgeries to the lumbar spine. 3. Otherwise, she reports being relatively healthy. FAMILY HISTORY: Father with Parkinson disease. No strokes or seizures. SOCIAL HISTORY: She is a current smoker. Social alcohol. No illicits. She lives in [place] but has been staying with her son who lives nearby. ALLERGIES: Listed to tramadol. HOME MEDICATIONS: She reports none and no supplements. CURRENT MEDICATIONS: Reviewed in the chart include: 1. P.R.N. Collins. 2. P.R.N. lorazepam. 3. P.R.N. morphine. REVIEW OF SYSTEMS: Balance of 12 was conducted and is otherwise negative except as detailed in the HPI. She has had abdominal pain and blood in her stool. PHYSICAL EXAMINATION: Vital signs: She is afebrile. Blood pressure 120/63, pulse 80s to 90s, respirations 18, 95% on room air. Neurological: Ms. Golden is sitting up in bed with the head of the bed elevated. She is awake, alert, oriented. Speech is slow, no language disturbance. Attention and concentration intact. She follows simple and complex commands. Left, right, and digit distinction preserved. Pupils equal, round and reactive to light, miotic. Gaze conjugate forward. Extraocular movements are full. Visual hope intact to direct confrontational testing. She can hear. Face symmetric with equal activation. Facial sensation reported intact. Tongue is midline. Palate elevates symmetrically. Shoulder shrug is full. No drift. Detailed strength testing of the upper extremities shows preserved strength bilaterally and symmetrically. This includes shoulder abduction, external and internal rotation, deltoid, triceps, biceps, pronation, supination, wrist flexion and extension, intrinsic hand muscles. The lower extremities are with full strength that is symmetric as tested. She is noted several times during the encounter to use both of her extremities purposely and without any obvious difficulty. She stands up, goes to her table, moves a crate of items using her arms. Sensory testing is a bit inconsistent but does not show any definite dermatomal pattern. Reflexes are trace wrists, 1+ at biceps, 2+ triceps, 2+ patellar, and 1+ ankle jerks bilaterally. They are symmetric. No clonus. Plantar response is downgoing. Rapid alternating movement, [id number], are intact and symmetric. Gait: She is seen to easily get out of the bed unassisted and walk a few steps back and forth from her tray table. She has a normal casual gait. DIAGNOSTICS: MRI of the cervical spine as per above. She also had a chest CT that did not show suspicious findings. Cervical spine CT was similar to MRI but mentioned severe vascular calcification of the carotid bulbs bilaterally compatible with severe vascular disease. ASSESSMENT AND PLAN: Fluctuating paresthesias isolated to the left upper extremity as detailed above. The etiology is uncertain at this time. She has evidence of neuroforaminal narrowing most prominent on the left at C5-C6 and C6-C7 per recent MRI, but there is no current weakness on exam and today her sensory findings were inconsistent and not definitely dermatomal. Given the brief time frame for which this has been ongoing, I think we can wait and see if it resolves on its own over the next couple of weeks but see her in clinic subsequently if it has not. This will give her time to heal from her current active medical issues but also will increase the sensitivity for any potential neurodiagnostics that may be performed. Thank you for the consultation. cc: Mel Lopez MD MTDD
[2018-08-22] MEDS: NORCO-5 PO PRN ×2 (14:41→18:19)
--- NOTE | 2018-08-22 16:45 | PROGRESS NOTE ---
DATE: 08/22/2018 SUBJECTIVE: The patient is resting comfortably in bed. No acute events noted overnight. OBJECTIVE: Vital Signs: Temperature 98.6 degrees, blood pressure 123/72, heart rate 92, respirations 19, and O2 saturations 100% on room air. General: This is an elderly female, lying in bed, in no acute distress. Heart: S1 and S2, normal. Regular rate and rhythm. Lungs: Clear to auscultation bilaterally. Abdomen: Positive bowel sounds. Soft, nontender, nondistended. Extremities: No edema, no cyanosis. Neurologic: The patient is alert and oriented x3. LABORATORY DATA: Hemoglobin 9.2, hematocrit 32, platelets 242,000. Sodium 136, potassium 3.3, BUN 8, creatinine 0.5, glucose 100. ASSESSMENT AND PLAN: 1. Gastrointestinal bleed secondary to multiple gastric ulcers. Continue on Carafate and Protonix. The patient's gastrin level was elevated. We will await further recommendations from gastrointestinal. 2. Erosive duodenitis. Continue on Protonix. 3. Iron deficiency anemia. Improved. 4. Bilateral pleural effusions. Resolved. 5. Possible cervical radiculopathy. The patient has been seen by the neurologist. She will likely need an EMG as an outpatient. 6. Severe vascular calcification of the carotid bulb. The patient had a carotid duplex study done today. We will await the report of this study. 7. Tobacco dependence. The patient has been counseled about smoking cessation. 8. Subclinical hypothyroidism. Aware. 9. Disposition. The patient should be stable for discharge home tomorrow. cc: Migdalia Whitney MD
[2018-08-22] MEDS: FERROUS SULFATE PO SCH (18:12)
--- NOTE | 2018-08-22 20:10 | PROGRESS NOTE ---
DATE: 08/22/2018 SUBJECTIVE: The patient states that her abdomen is significantly better than last week. She denies nausea with vomiting. She denies recurrent GI bleeding. She remains on Carafate and Protonix. She notes that her abdomen is mildly tender but denies pain per se. She reports no recurrent bowel movement since her colonoscopy. She denies melena or hematochezia. PHYSICAL EXAM: Vital Signs: Her blood pressure is 123/72, pulse 92, respiration 19, temperature of 98.6 degrees. HEENT: Negative for jaundice. Her oropharyngeal mucosa membranes are moist. Pulmonary: Lungs are clear to auscultation with normal respiratory effort. Cardiovascular: Reveals regular rate and rhythm. Abdomen: Soft with mild diffuse tenderness. There is no rebound or guarding. OBJECTIVE DATA: Reveals a hemoglobin of 9.2 with hematocrit of 32.0 and a white count of 8.93. She has 247,000 platelets. Sodium is 136, potassium 3.3, chloride 99, CO2 24, BUN 8, creatinine 0.5 with a glucose of 100 and a calcium of 8.4. Her serum gastrin is 172, TTG is less than 1.2 and gastric pH was 5. RECOMMENDATION: 1. The patient has considerable constipation. Therefore, I recommend beginning Movantik 12.5 mg once a day in the morning. I will write for the 1st dose tomorrow. 2. The patient had evidence of peptic ulcer disease. There has been no evidence of recurrent GI bleeding. Her hemoglobin has been stable. I would continue Protonix and Carafate. Once she is ready for discharge, I would transition to omeprazole once a day and Carafate 4 times a day for a total of 12 weeks and then stop. 3. Patient had an elevated gastrin level but it does not fall within the range consistent was Gopi-Villa syndrome. Her gastric pH is also within the range expected for acid peptic disease but does not fall in the range of Gopi-Villa. Therefore, I would continue current management. 4. I will defer to the primary team for correction of her hypokalemia. 5. Will have the patient return to clinic in 4 to 6 weeks to assess interval progress. cc: Migdalia Whitney MD
[2018-08-22] MEDS: SODIUM CHLORIDE 0.9% INJ SCH (22:22)
[2018-08-23] MEDS: DUONEB (A & A) INH SCH ×6 (03:28→23:11)
[2018-08-23] MEDS: CARAFATE LIQUID PO SCH ×6 (04:54→22:59)
[2018-08-23] MEDS: ZOSYN 2.25 GM in NS 50 ML IV SCH ×4 (05:17→22:29)
[2018-08-23] MEDS: TUSSIONEX LIQUID PO PRN (05:33)
[2018-08-23] MEDS: ATIVAN IV PRN ×4 (05:33→21:02)
[2018-08-23] MEDS: ZOFRAN IV PRN ×3 (05:33→16:17)
[2018-08-23] MEDS: MOVANTIK PO SCH (06:11)
[2018-08-23] MEDS: NORCO-5 PO PRN ×3 (06:11→21:02)
[2018-08-23 07:30] LABS: HEMATOCRIT 33.1 % (37.0-47.0); HEMOGLOBIN 9.7 g/dL (12.0-16.0); MCH 26.6 PG (27-31); MCHC 29.3 g/dL (33-37); MCV 90.9 FL (81-99); MPV 10.4 FL (7.4-10.4); RBC 3.64 XMIL (4.2-5.4); RDW 23.7 % (11.5-14.5); WBC 9.06 X1000 (4.8-10.8)
[2018-08-23 07:38] LABS: AGAP 12; BUN 6 mg/dL (8-22); CALCIUM 7.8 mg/dL (8.8-10.2); CHLORIDE 101 mmol/L (98-107); COSMO 273; CREATININE 0.6 mg/dL (0.5-0.9); ESTIMATED GFR > 60; GLUCOSE 133 mg/dL (70-104); POTASSIUM 4.2 mmol/L (3.5-5.1); SODIUM 137 mmol/L (136-145); TCO2 24 mmol/L (25-35)
[2018-08-23] MEDS: FERROUS SULFATE PO SCH ×2 (09:00→16:03)
[2018-08-23] MEDS: PROTONIX IV SCH ×2 (09:00→20:41)
[2018-08-23] MEDS: TESSALON PO PRN (09:09)
--- NOTE | 2018-08-23 13:41 | Carotid Study ---
DATE: 08/22/2018 PROCEDURE: Carotid duplex imaging. REFERRING PHYSICIAN: Dr. Whitney INTERPRETING PHYSICIAN: Dr. Mosquera TECH: Fredis Steiner [facility] INDICATIONS: Transient ischemic attack. OBSERVED DATA RIGHT LEFT Brachial Blood Pressure Carotid Pulse Bruits: Carotid/Sub DIAGRAM OF ULTRASOUND IMAGING R L RIGHT INT EXT INT EXT LEFT Nathen (cm/s) Nathen (cm/s) Subclavian 137/0 Subclavian 153/5 CCA Proximal 106/16 CCA Proximal 139/25 CCA Distal 109/16 CCA Distal 112/25 Bulb 100/16 Bulb 125/22 ICA Proximal 94/22 ICA Proximal 114/25 ICA Mid 90/19 ICA Mid 128/33 ICA Distal 69/17 ICA Distal 76/22 ECA 131/7 ECA 108/9 Vertebral 63/11 Vertebral 50/9 ICA/CCA Ratio 0.86 ICA/CCA Ratio 0.92 % Stenosis 0 to 39 % Stenosis 40 to 59 PHYSICIAN INTERPRETATION: Mild to moderate atherosclerotic disease of the distal common and internal carotid arteries bilaterally without evidence of a hemodynamically significant lesion in either carotid system. cc: MD Migdalia King MD
--- NOTE | 2018-08-23 14:24 | PROGRESS NOTE ---
DATE: 08/23/2018 The patient is followed by Dr. Bhat. She does not have a primary care physician. SUBJECTIVE: A 57-year-old white female, approximately 4 weeks ago, before presentation, presented with bloody bowel movement, severe anemia. She was admitted, in the hospital and underwent an EGD and colonoscopy which were negative. Followed by Dr. Yoel Kumar in [place]. According to the patient, she had at least 3 EGDs and 3 colonoscopies every two years. No source of bleeding found. Reports the stools were sometimes dark brown to black alternating with maroon stools. She required multiple units of blood. Several iron transfusions. She has had a transfusion every 2 to 3 months for 3 weeks. hemoglobin dropped less than 5. Referred to [facility] in March, where she underwent capsule endoscopy. For further evaluation, it was also reported normal. Referred back to [place] with recent GI bleed in April,. Had a normal capsule endoscopy at that time. Subsequently, went back to [facility] and underwent double balloon enteroscopy May,. They found a few AVMs. Less than a month later, she is admitted to [facility] with hemoglobin less than 6 and underwent capsule endoscopy. She states the endoscopy was negative. She was discharged home and readmitted a month with severe anemia. Underwent EGD and colonoscopy, capsule endoscopy and no source of bleeding was found. Required multiple units of blood but she was told not to come back because they could not figure out where bleeding was coming from. She states that because of her experience at , she did not seek evaluation there for recurrent GI bleeding. For the last week before admission , had daily bowel movements that were maroon in color associated with profound weakness. Went to [facility], found a hemoglobin of 3.5, hematocrit 13.5. ADMISSION DIAGNOSES: 1. Obscure gastrointestinal bleed. 2. Profound anemia. 3. Epigastric periumbilical abdominal pain. Dr. Bhat is following. She had a barium enema on 08/19/2018. Mild diverticulosis in sigmoid colon and redundant sigmoid colon. No other abnormality. She underwent EGD, and they did a duodenal biopsy gastric mass biopsy, gastric aspirate for PH. She had bowel active, bile reflux, acute erosive gastritis, 5 gastric ulcers in the interim. One gastric ulcer in the cardia and fundus, acute erosive duodenitis scalloped duodenal folds. Duodenal diverticulum. She is on Protonix 40 mg q. 12 h and Carafate. She underwent colonoscopy as well. They found sharp angulation versus redundant colon sigmoid and descending colon, diverticulosis, sessile polyps at 20 cm grade 2 internal hemorrhoids, large external hemorrhoids. Obtained a barium swallow. They need to repeat a colonoscopy for additional colon polyps in the future. She feels better overall and talked about going home. She would like to try and go home tomorrow. OBJECTIVE: Temperature 98.2, pulse 90, respirations 16, blood pressure 124/70. Eyes: Pupils are equal and round. Lungs: Clear in all lung hope. Cardiovascular has regular rate without murmur or S3. Abdomen: Soft. Skin: Warm and dry. Urine output over 800 mL. ASSESSMENT AND PLAN: 1. Gastrointestinal bleed secondary to multiple gastric ulcers. Continue Carafate and Protonix. Gastrin level was elevated, so, Dr. Bhat, is following. 2. Erosive duodenitis. He is on Protonix. 3. Iron deficiency anemia, improved. 4. Bilateral pleural effusions, resolved. 5. Possible cervical radiculopathy. The patient is seen by a neurologist. She will likely need an EMG as an outpatient for further workup. 6. Severe vascular calcification of carotid ball. She has carotid duplex study which was done await report. 7. Tobacco dependence. 8. Subclinical hypothyroidism. 9. Hopefully, can be discharged tomorrow. REVIEW OF HER ORDERS: 1. Albuterol ipratropium 3 mL q.4 hours. 2. Tessalon Perles 100 mg t.i.d. p.r.n. 3. Ferrous sulfate 325 mg b.i.d. 4. Hydrocodone 5 1 q.4 hours. 5. Ativan 1 mg q.4 hours. She has naloxegol oxalate 12.5 mg daily. 6. She is on Protonix 40 mg IV q.12. 7. Carafate 1 g q.6 hours. 8. Zosyn 225 g q.6. REVIEW OF HER LABORATORY DATA: Hematocrit 33, hemoglobin 9.7. Electrolytes look good. Creatinine 0.6. So, she can go home in the morning. The patient has had considerable constipation. We can begin the Movantik 12.5 mg a day in the morning and evidence of peptic ulcer disease. 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 Gastric pH also within range of expected for acid peptic disease but does not fall in the range of zoology and Selina disease; therefore, continue present management and follow up with GI as an outpatient. Hope to let her go home tomorrow. cc: Thang Vinson MD MTDD
--- NOTE | 2018-08-23 20:34 | PROGRESS NOTE ---
DATE: 08/23/2018 SUBJECTIVE: The patient states that she is feeling better today other than fatigue. She denies abdominal pain. She denies blood in her stool. PHYSICAL EXAM: On exam her blood pressure is 110/60, pulse 100, respiration 19, temperature of 98.2 degrees.HEENT: Unremarkable. The remainder of her exam was deferred as the patient was sleeping. OBJECTIVE DATA: Reveals a hemoglobin 9.7 with hematocrit of 33.1 and a white count of 9.06. She has 260,000 platelets. Sodium is 137, potassium 4.2, chloride 101, CO2 24, BUN 6, creatinine 0.6 with a glucose 133 and a calcium of 7.8. RECOMMENDATION: 1. The patient had multiple gastric ulcers. I would continue Protonix 40 mg IV q.12 hours while she is an inpatient. I would transition to omeprazole 40 mg 1 p.o. daily. 2. Continue Carafate but transition to tablets when she is ready for discharge. I would continue 1 g p.o. q.6 hours for a total of 12 weeks and then stop. 3. Continue Movantik 12.5 mg before breakfast on a daily basis for the constipation. 4. Use Zofran as needed for nausea. 5. We will schedule an outpatient colonoscopy with Dr. Garner for further evaluation of her colon polyps. She has a redundant colon and we were unsuccessful in reaching the cecum. She would benefit from a repeat evaluation. Her barium enema was unremarkable. 6. The patient should return to GI clinic in 4 to 6 weeks to assess interval progress. cc: Jeet Velazquez MD
[2018-08-24] MEDS: DUONEB (A & A) INH SCH ×3 (03:18→11:53)
[2018-08-24] MEDS: CARAFATE LIQUID PO SCH ×2 (05:30→12:17)
[2018-08-24] MEDS: ZOSYN 2.25 GM in NS 50 ML IV SCH ×3 (05:31→10:27)
[2018-08-24] MEDS: MOVANTIK PO SCH (06:30)
[2018-08-24 07:21] LABS: AGAP 14; BUN 7 mg/dL (8-22); CALCIUM 7.8 mg/dL (8.8-10.2); CHLORIDE 102 mmol/L (98-107); COSMO 271; CREATININE 0.5 mg/dL (0.5-0.9); ESTIMATED GFR > 60; GLUCOSE 91 mg/dL (70-104); SODIUM 137 mmol/L (136-145); TCO2 21 mmol/L (25-35)
[2018-08-24] MEDS: NORCO-5 PO PRN (09:28)
[2018-08-24] MEDS: FERROUS SULFATE PO SCH (09:28)
[2018-08-24] MEDS: PROTONIX IV SCH (09:28)
[2018-08-24] MEDS: ATIVAN IV PRN (11:30)
[2018-08-24] MEDS: TESSALON PO PRN (11:30)
--- NOTE | 2018-08-24 14:02 | DISCHARGE SUMMARY ---
ADMISSION DATE: 08/15/2018 DISCHARGE DATE: 08/24/2018 HISTORY OF PRESENT ILLNESS: This was a 57 year old who was admitted on 08/15/2018 for GI bleeding. She is a 57 year old, who states that approximately 4 weeks before presented with bloody bowel movement, severe anemia. She was admitted to [facility], underwent EGD and colonoscopy which were negative. She has been followed up with Dr. Kumar in [place], [place]. According to patient, she has had at least 3 EGDs and 3 colonoscopies in a period of 2 years, but no source of bleeding found. Had multiple workups, admitted multiple times, both to [facility] and also [facility]. She had double balloon endoscopy in May 2017. She had normal capsule endoscopy in April 2017. Apparently they did find some AVM's that were visualized and cauterized. She a month later admitted at [facility] with hemoglobin of 6. Discharged home, had severe anemia, and now presents again with severe anemia. PAST MEDICAL HISTORY: 1. Recurrent anemia. 2. Obscure gastrointestinal bleeding with multiple EGD's, colonoscopies, double balloon endoscopy and capsule endoscopy performed. 3. Cervical cancer. 4. Traumatic back injury. 5. MRSA skin infection. 6. Small bowel and colonic AVM's, status post cautery. PAST SURGICAL HISTORY: 1. Total abdominal hysterectomy. 2. . 3. Bilateral tubal ligation. 4. Back surgery x2. MEDICATION ALLERGIES: She is allergic to tramadol that causes her nausea. HOSPITAL COURSE: So, she is admitted with obscure GI bleed, profound anemia, epigastric and periumbilical abdominal discomfort, weakness and fatigue. She was given some packed red blood cells. Put on IV Protonix and Dr. Bhat had followed her. Abdominal and pelvic CT on 08/17/2018 showed bilateral pleural effusions, basilar atelectasis, ascites, diverticulosis coli, enlargement of adrenal gland. Chest x-ray on 08/17, bilateral pleural effusions, minimal basilar atelectasis. Chest x-ray on 08/18, small pleural effusions, right basilar atelectasis. She had x-ray of soft tissue of her neck. No definite evidence of acute disease. She had cervical spine CT with chronic malpositioning of the cervical spine, cervical spondylosis. She had a barium enema 08/19: Mild diverticulosis in sigmoid colon and redundant sigmoid colon. Otherwise, no abnormality. Underwent EGD and colonoscopy per Dr. Bhat. They did a duodenal biopsy, gastric biopsy. She had active bile reflux, active erosive gastritis with 5 gastric ulcers in the antrum and 1 gastric ulcer in the cardia and fundus. Acute erosive duodenitis and manager molecular duodenal folds. Duodenal diverticulum. Colonoscopy: Sigmoid and descending colon diverticulosis, had sessile polyp at 20 cm, grade 2 internal hemorrhoids, large external hemorrhoids. Echocardiogram with Doppler 08/20/2018: Normal left ventricular size, ejection fraction 60%. Mitral valve was normal. Aortic valve was sclerosed. Bileaflet opening. CT of the chest on 08/20: Trace right pleural effusion. Nonspecific linear atelectasis in both lung bases. No suspicious findings. Dr. Lopez had seen her for Neurology: Fluctuating paresthesias isolated to left upper extremity, etiology uncertain. Evidence of neural foraminal narrowing, most prominent in the left C5-C6, C6- C7. Per recent MRI there is no current weakness on exam. No definite dermatomal findings. I would like to see if it will resolve on its own. Follow up as an outpatient. Dr. Bhat felt to continue to treat peptic ulcers. We will let her go home on omeprazole 40 mg a day. Carafate 1 g q. 6 hours. Continue her Movantik 12.5 for breakfast. Continue Zofran for nausea. She will follow up as an outpatient with Dr. Velazquez for further evaluation of the colon polyps. They were unsuccessful in reaching the cecum. She has a redundant colon. Follow up with her blood counts as well with her primary care. Plan to let her go home. cc: Thang Vinson MD
[2018-08-24 14:15] VITALS: BP 139/83
== END 2018-08-24 15:27 | disposition home or self-care (01) | DRG 378 ==
LOC: P.ED 14:59 → SUATTDRO 20:57 → 3N 20:57
PROVIDERS: ATTEND Emergency Medicine
CPT/HCPCS: 36415; 36430; 70360; 71010; 71045; 71250; 72125; 72141; 74019; 74020; 74177; 74270; 76536; 80048; 80053; 80061; 82270; 82607; 82728; 82746; 82784; 82941; 83516; 83540; 83550; 83735; 83986; 84100; 84443; 85025; 85027; 85045; 85651; 86140; 86850; 86900; 86901; 86920; 88305; 88312; 93306; 93880; 94640; 94761; 96374; 96375; 99285; A9270; C9113; J0690; J1756; J1940; J2060; J2270; J2405; J2543; J3480; J7030; P9016; Q9958; Q9967; S0164